=== PATIENT | male | born 1990 | race African-American/Black ===

== ENCOUNTER 2019-11-26 22:36 | Emergency (ER) | payer SELFPAY ==
[2019-11-26] MEDS ORDERED: Ketorolac Tromethamine 30 MG/ML VIAL ONE (22:54)
[2019-11-26] MEDS ORDERED: HYDROcodone/Acetaminophen 10/325 mg Tablet ONE (22:54)
--- NOTE | 2019-11-27 07:34 | RAD ---
LUMBAR SPINE 3 VIEWS: DATE: 11/26/2019. FINDINGS: No fracture, dislocation, or bony anomaly of concern was seen. The disk spaces are normal in height and the SI joints appear normal. IMPRESSION: No acute findings. POS: HOME
== END 2019-11-26 23:34 | disposition home or self-care (01) ==
LOC: BURERS 22:36
DX: S39.012A Strain of muscle, fascia and tendon of lower back, initial encounter (principal); F17.210 Nicotine dependence, cigarettes, uncomplicated; X50.1XXA Overexertion from prolonged static or awkward postures, initial encounter
CPT/HCPCS: 72100; 96372; J1885

== ENCOUNTER 2021-04-30 10:54 | Emergency (ER) | payer SELFPAY ==
[2021-04-30] MEDS ORDERED: Boostrix 0.5 ML (Tdap) VIAL IM ONE (10:55)
[2021-04-30] MEDS ORDERED: TETANUS, DIPHTHERIA TOX,ADULT (TDVAX) 0.5 ML VIAL IM ONE (11:23)
== END 2021-04-30 11:40 | disposition home or self-care (01) ==
LOC: BURERS 10:54
DX: S51.812A Laceration without foreign body of left forearm, initial encounter (principal); S41.112A Laceration without foreign body of left upper arm, initial encounter; F17.210 Nicotine dependence, cigarettes, uncomplicated; F17.290 Nicotine dependence, other tobacco product, uncomplicated; W26.8XXA Contact with other sharp object(s), not elsewhere classified, initial encounter
CPT/HCPCS: 90714; 90715; 99282

== ENCOUNTER 2025-01-24 18:51 | Emergency (ER) | payer SELFPAY ==
[~2025-01-24 18:51] MED LIST: Iopamidol 370 76% 100 ML VIAL ONE
[2025-01-24 20:04] LABS: Hematocrit 48.0 % (42.0-52.0); Hemoglobin 15.8 g/dL (14.0-18.0); MDiff Complete? YES; Mean Corpuscular Hemoglobin 31.4 pg (27.0-31.0); Mean Corpuscular Volume 95.6 fl (78.0-98.0); Platelet Adequacy Comment Appears Adequate; Platelet Count 273 10x3/uL (130-400); Red Blood Cell (RBC) Count 5.02 mill/uL (4.70-6.10); White Blood Cell (WBC) Count 6.4 10x3/uL (4.8-10.8)
[2025-01-24 20:08] LABS: ALT (SGPT) 16 U/L (Less than 45); AST (SGOT) 31 U/L (11-34); Albumin 4.2 g/dL (3.1-4.5); Alkaline Phosphatase 88 U/L (40-110); Anion Gap 16 mmol/L (10-20); BUN (Urea Nitrogen) 13 mg/dL (8.9-20.6); Bilirubin, Total 0.3 mg/dL (0.3-1.2); Calc. Creatinine Clearance 0 mL/min (70-130); Calcium 9.4 mg/dL (7.8-10.44); Carbon Dioxide 27 mmol/L (22-29); Chloride 102 mmol/L (98-107); Globulin 3.3 g/dL (2.4-3.5); Glucose 91 mg/dL (70-105); Potassium 4.0 mmol/L (3.5-5.1); Sodium 141 mmol/L (136-145)
[2025-01-24] MEDS ORDERED: Ketorolac Tromethamine 30 MG (1 mL) VIAL ONE (20:49)
== END 2025-01-24 21:42 | disposition home or self-care (01) ==
LOC: BURERS 18:51
DX: G44.209 Tension-type headache, unspecified, not intractable (principal); E86.0 Dehydration; F17.290 Nicotine dependence, other tobacco product, uncomplicated
CPT/HCPCS: 70450; 70496; 70498; 80053; 85025; 96361; 96374; 99406; J1885; Q9967